=== PATIENT | female | born 1960 | race Caucasian/White ===

== ENCOUNTER → 2016-09-02 | Outpatient (CLI) | payer OTHER ==
[~2016-09-02] MED LIST: ADVAIR 250/501 DISK IH; ANTIVERT25 MG PO; BENICAR5 MG PO; FLONASE16 GM NS; IRON55 MG PO; MICROZIDE12.5 M1 PO; MOTRIN600 MG PO; WOMENS MULTIPL1 EACH PO; ZYRTEC10 MG PO
== END | disposition home or self-care (01) ==
LOC: CDC 09:03
DX: I49.9 Cardiac arrhythmia, unspecified (principal)
CPT/HCPCS: 93000

== ENCOUNTER 2016-09-09 07:10 | Day surgery (SDC) | payer OTHER ==
[~2016-09-09] VITALS: Ht 160 cm; Wt 136.0 kg
[2016-09-09 07:45] VITALS: BP 161/72
[2016-09-09 11:45] VITALS: BP 132/58
[2016-09-09 12:47] VITALS: BP 136/65
[2016-09-09 15:03] VITALS: BP 162/62
== END 2016-09-09 15:02 | disposition home or self-care (01) ==
LOC: SDC
DX: N95.0 Postmenopausal bleeding (principal); Z53.09 Procedure and treatment not carried out because of other contraindication; N85.4 Malposition of uterus; E66.01 Morbid (severe) obesity due to excess calories; Z68.42 Body mass index [BMI] 45.0-49.9, adult; I10 Essential (primary) hypertension; J45.909 Unspecified asthma, uncomplicated; Z80.3 Family history of malignant neoplasm of breast; Z80.42 Family history of malignant neoplasm of prostate; Z88.0 Allergy status to penicillin
CPT/HCPCS: J1885; J2250; J3010